=== PATIENT | male | born 1975 | race Caucasian/White ===

== ENCOUNTER 2017-11-13 23:32 | Inpatient (IN) | payer BC ==
[~2017-11-13] VITALS: Ht 182.9 cm; Wt 160.3 kg
[2017-11-14] VITALS (10 sets, daily range): BP systolic 150–184; BP diastolic 88–120; PULSE 77–100; TEMP 97.8–98.8
[2017-11-14 01:46] LABS: INR 1.2 (0.8-3.0); PROTHROMBIN TIME 13.9 SECONDS (9.7-12.8)
[2017-11-14 01:47] LABS: PHOSPHOROUS 3.6 mg/dL (2.5-4.5)
[2017-11-14 01:49] LABS: PARTIAL THROMBOPLASTIN TIME 31.2 SECONDS (26.0-37.0)
[2017-11-14] MEDS ORDERED: [UNRECOGNIZED DRUG - REMARK] PO (03:00)
[2017-11-14] MEDS ORDERED: NORVASC 10MG10 MG PO (03:42)
[2017-11-14] MEDS ORDERED: HCTZ 25MG TAB25 MG PO (03:42)
[2017-11-14] MEDS ORDERED: LEXAPRO 10MG10 MG PO (03:43)
[2017-11-14] MEDS ORDERED: PRAVACHOL 40MG40 MG PO (03:43)
[2017-11-14] MEDS ORDERED: ACCUPRIL10 M1 PO (03:44)
[2017-11-14 13:38] LABS: THYROXINE (T4)-TOTAL 6.9 ug/dL (5.5-11.0)
[2017-11-14 14:27] LABS: THYROID STIMULATING HORMONE 1.84 uIU/mL (0.465-4.680)
[2017-11-15] VITALS (11 sets, daily range): BP systolic 135–191; BP diastolic 73–110; PULSE 68–91; TEMP 97.6–99.2
[2017-11-15 07:49] LABS: BASO # 0.1 (0.0-0.2); BASO % 0.6 % (0.0-2.0); EOS # 0.1 (0.0-0.7); GRAN # 6.3 (1.4-6.5); GRAN % 70.2 % (42.2-75.2); HEMATOCRIT 38.8 % (42.0-52.0); HEMOGLOBIN 13.2 g/dl (13.5-18.0); LYMPH # 1.6 (1.2-3.4); LYMPH % 17.9 % (20.0-51.0); MEAN CELL VOLUME 92 fl (80.0-100.0); MEAN CORPUSCULAR HEMOGLOBIN 31 pg (27.0-31.0); MEAN CORPUSCULAR HGB CONC 34 g/dl (33.0-37.0); MEAN PLATELET VOLUME 10.5 fl (7.4-10.4); MONO # 0.9 (0.1-0.6); PLATELET COUNT 206 K/mm3 (130-400); RED BLOOD COUNT 4.23 M/mm3 (4.20-5.60); REDCELL DISTRIBUTION WIDTH-CV 12.8 % (11.5-14.5)
[2017-11-15 08:14] LABS: MAGNESIUM 2.1 mg/dL (1.6-2.3); PHOSPHOROUS 3.4 mg/dL (2.5-4.5)
[2017-11-15 08:18] LABS: ALBUMIN 3.8 gm/dL (3.5-5.0); BILIRUBIN,TOTAL 0.8 mg/dL (0.0-1.0); C-REACTIVE PROTEIN 1.3 mg/dL (0.0-0.9); CALCIUM 8.7 mg/dL (8.4-10.2); CHOLESTEROL RISK RATIO 4.8; CREATININE, serum 0.81 mg/dL (0.66-1.25); TOTAL PROTEIN 7.1 gm/dL (6.4-8.2)
[2017-11-15 08:30] LABS: POTASSIUM 3.9 mmol/L (3.4-5.0)
[2017-11-15 15:18] LABS: HOMOCYSTEINE 5.2 umol/L (5.5-16.2)
[2017-11-15 17:04] LABS: PT G20210A MUTATION B Negative (Negative)
[2017-11-16 00:07] VITALS: BP 188/94; PULSE 73; TEMP 98.9
[2017-11-16 00:41] LABS: RPR (VDRL) Non-reactive (())
[2017-11-16 03:28] VITALS: BP 164/85; PULSE 73; TEMP 98.7
[2017-11-16 08:21] VITALS: BP 185/103; PULSE 74; TEMP 97.6
[2017-11-16 09:39] LABS: FACTOR V 98 % (50-150)
[2017-11-16] MEDS ORDERED: PLAVIX 75MG TAB75 MG PO (09:41)
[2017-11-16] MEDS ORDERED: LIPITOR 80MG80 MG PO (09:42)
[2017-11-16 10:56] LABS: ANTI-THROMBIN III 92 % (72-128)
[2017-11-16] MEDS ORDERED: ASPI325T6 PO (11:05)
[2017-11-16 11:48] VITALS: BP 174/90; PULSE 74; TEMP 97.9
== END 2017-11-16 13:42 | disposition home or self-care (01) | DRG 65 ==
LOC: MEDICAL 23:32
PROVIDERS: Internal Medicine; Nurse Practitioner Family; Psychiatry & Neurology Neurology
DX: I63.29 Cerebral infarction due to unspecified occlusion or stenosis of other precerebral arteries (principal); G81.91 Hemiplegia, unspecified affecting right dominant side; Z68.42 Body mass index [BMI] 45.0-49.9, adult; R29.702 NIHSS score 2; I10 Essential (primary) hypertension; Z86.711 Personal history of pulmonary embolism; Z79.01 Long term (current) use of anticoagulants; Z86.718 Personal history of other venous thrombosis and embolism; E66.01 Morbid (severe) obesity due to excess calories
CPT/HCPCS: 99222-AI; 99232-AI; 99233-AI; 99239; A9585; G0378; G8978-GP; G8979-GP; G9654; J0330; J1650; J2250; J2704; J2765; J3420; J7030; J7120

== ENCOUNTER 2018-01-25 10:39 | Outpatient (CLI) | payer BC ==
[~2018-01-25] VITALS: Ht 182.9 cm; Wt 154.4 kg
[~2018-01-25 10:39] MED LIST: ACCUPRIL10 M1 PO; ASPI325T6 PO; HCTZ 25MG TAB25 MG PO; LEXAPRO 10MG10 MG PO; LIPITOR 80MG80 MG PO; NORVASC 10MG10 MG PO; PLAVIX 75MG TAB75 MG PO; PRAVACHOL 40MG40 MG PO; [UNRECOGNIZED DRUG - REMARK] PO
[2018-01-25 11:23] LABS: HEMATOCRIT 40.9 % (42.0-52.0); HEMOGLOBIN 14.6 g/dl (13.5-18.0); MEAN CELL VOLUME 88 fl (80.0-100.0); MEAN CORPUSCULAR HEMOGLOBIN 31 pg (27.0-31.0); MEAN CORPUSCULAR HGB CONC 36 g/dl (33.0-37.0); MEAN PLATELET VOLUME 10.5 fl (7.4-10.4); PLATELET COUNT 214 K/mm3 (130-400); RED BLOOD COUNT 4.65 M/mm3 (4.20-5.60); REDCELL DISTRIBUTION WIDTH-CV 12.6 % (11.5-14.5)
[2018-01-25 11:27] LABS: INR 1.2 (0.8-3.0)
[2018-01-25 11:36] LABS: CALCIUM 9.2 mg/dL (8.4-10.2); CREATININE, serum 0.72 mg/dL (0.66-1.25); POTASSIUM 4.1 mmol/L (3.4-5.0)
[2018-01-25 11:40] VITALS: BP 125/85; PULSE 68; TEMP 98
[2018-01-25 13:42] VITALS: BP 141/78; PULSE 75; TEMP 98
== END 2018-01-25 13:46 | disposition home or self-care (01) ==
LOC: COL.CAR 10:39
PROVIDERS: Internal Medicine Interventional Cardiology
DX: I63.9 Cerebral infarction, unspecified (principal); I48.0 Paroxysmal atrial fibrillation; I10 Essential (primary) hypertension; I45.10 Unspecified right bundle-branch block; E78.5 Hyperlipidemia, unspecified; F32.9 Major depressive disorder, single episode, unspecified; I83.893 Varicose veins of bilateral lower extremities with other complications; Z90.49 Acquired absence of other specified parts of digestive tract; Z79.01 Long term (current) use of anticoagulants; Z86.73 Personal history of transient ischemic attack (TIA), and cerebral infarction without residual deficits; Z86.718 Personal history of other venous thrombosis and embolism; Z83.3 Family history of diabetes mellitus; Z82.49 Family history of ischemic heart disease and other diseases of the circulatory system